=== PATIENT | male | born 1990 | race Two or more races ===

== ENCOUNTER 2017-04-28 02:29 | Emergency (ER) | payer OTHER ==
[~2017-04-28] VITALS: Ht 170.2 cm; Wt 68.0 kg
[2017-04-28 02:38] VITALS: BP 131/86
== END 2017-04-28 03:36 ==
LOC: ER 02:38
DX: Z00.8 Encounter for other general examination (principal); Z88.1 Allergy status to other antibiotic agents
CPT/HCPCS: A4606; Z7610